=== PATIENT | female | born 1965 | race Caucasian/White ===

== ENCOUNTER 2020-01-01 06:39 | Outpatient (CLI) | payer BC ==
[~2020-01-01] VITALS: Ht 160 cm; Wt 88.8 kg
[2020-01-01] VITALS (15 sets, daily range): BP systolic 110–135; BP diastolic 73–91; PULSE 57–76
[~2020-01-01 06:39] MED LIST: HYZAAR 25 MG-101 TAB PO; MEVACOR 20M20 MG/TAB PO; MOTRIN 800800 MG/TAB PO; NIACIN 100100 MG/TAB PO; PERCOCET 325 MG1 TA2 PO; TAMOXIFEN CITRA20 MG PO; XANAX .25M0.25 MG/TA PO
[2020-01-01] MEDS ORDERED: HYZAAR 25 MG-101 TAB PO (06:45)
[2020-01-01] MEDS ORDERED: MEVACOR 20M20 MG/TAB PO (06:46)
[2020-01-01] MEDS ORDERED: CRESTOR 10MG10 MG PO (06:57)
[2020-01-01] MEDS ORDERED: NIACIN 64 MG-501 TA1 PO (06:58)
[2020-01-01] MEDS ORDERED: ZYRTEC 10MG10 MG PO (06:58)
[2020-01-01] MEDS ORDERED: FLONASEALLERGY NS (06:59)
--- NOTE | 2020-01-01 08:00 | NUR ---
Pt to ct per ambulation, Monitors applied and O2 on at 2l/nc.
--- NOTE | 2020-01-01 08:27 | NUR ---
Specimen obtained and placed in formalin by Dr Salas, specimen labeled.
--- NOTE | 2020-01-01 11:29 | NUR ---
Pt is ambulatory to exit at this time,this rn ambulated her to exit. she has steady gait and remains p,w,d with reg and unlabored respirations. We reviewed dc instructions r/t needle biopsy, and pt denied questions at time of departure. Prior to pt's discharge, pt's IV was dc'd with cath intact, dressing was applied.
== END 2020-01-01 11:35 | disposition home or self-care (01) ==
LOC: COL.RAD 06:39
DX: R91.1 Solitary pulmonary nodule (principal)
CPT/HCPCS: 32106